=== PATIENT | female | born 1965 | race Caucasian/White ===

== ENCOUNTER 2017-03-18 20:00 | Emergency (ER) | payer SELFPAY ==
[~2017-03-18] VITALS: Ht 170.2 cm; Wt 65.0 kg
[~2017-03-18 20:00] MED LIST: ADVAI100I PO; ALBU6.7H INH; ALBU8I INH; COMBAER INH; PRED20 PO; PULM90IN INH; ZITHTAB PO
[2017-03-18 20:02] VITALS: BP 128/79; PULSE 72; RESP 15; TEMP 98.8; O2SAT 97
--- NOTE | 2017-03-18 21:40 | PD ---
HPI Chief Complaint: Injury Time Seen by Provider: 21:28 Travel History International Travel<30 days: No Contact w/Intl Traveler<30days: No Traveled to known affect area: No History of Present Illness HPI 51-year-old white female presents to the department with complaints of right knee pain over the past few days. She had a slip and fall a few days ago when she fell in the bathroom at [facility]. At that time she had fallen on her buttocks but did not injure her knee.. She states that she normally does a lot of activities but has not noticed any thing out of the usual.The patient states that she has significant worsening pain in her right knee after cleaning her home today. She complains of pain diffusely in the knee. It appears to be worse in the back of her knee. She feels it is swollen and tight. She denies any thigh or calf pain. No numbness or tingling. 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 She is not on a blood thinners. [facility] Past Medical History Narrative Medical Asthma, pneumonia, ovarian cancer, DVT, PE Asthma: Yes Cancer: Yes (UTERINE 20 YRS AGO) Respiratory: Yes (ASTHMA) Tetanus Vaccination: < 5 Years ?: Not Dilation and Curettage (D&C): Yes Past Surgical History Narrative Surgical Salpingo-oophorectomy, chemotherapy and radiation for ovarian cancer Social History Alcohol Use: No Tobacco Use: No Substance Use: No Allergies-Medications (Allergen,Severity, Reaction): Coded Allergies: No Known Allergies (Unverified , 03/18/17) Reported Meds & Prescriptions Reported Meds & Active Scripts Active Ventolin Hfa (Albuterol Sulfate) 8 Gm Aero 2 Puff INH Q4 PRN Advair Diskus 100/50 (Salmeterol Xinafoate/Fluticasone) Fluticasone/Salmeterol 100/50 Inh 1 Puff PO BID Zithromax Z-Brandon (Azithromycin) 1 Tab Tab 250 Mg PO DAILY 5 Days Deltasone 20 Mg Tab (Prednisone) 20 Mg Tab 20 Mg PO Q12HR 5 Days Proventil Hfa (Albuterol Sulfate) 6.7 Gm Aero 2 Puff INH Q4HPRN * SHAKE WELL BEFORE USE * Reported Pulmicort Flexhaler (Budesonide (Inhalation)) 90 Mcg Inh 1 Puff INH Combivent (Albuterol/Ipratropium) 14.7 Gm Aer 2 Puff INH Q6H Review of Systems Except as stated in HPI: all other systems reviewed are Neg General / Constitutional: No: Fever, Chills HENT: No: Lightheadedness, Sore Throat Cardiovascular: No: Chest Pain or Discomfort, Palpitations Respiratory: No: Cough, Shortness of Breath, Wheezing Gastrointestinal: No: Nausea, Vomiting, Abdominal Pain Genitourinary: No: Frequency, Dysuria Musculoskeletal: Positive: Arthralgias, Limited ROM, Cramping, Edema, Pain Skin: Positive Other, No Rash, No Itching Physical Exam Narrative GENERAL: This is a well-nourished, well-developed patient, in no apparent distress. Patient is hard of hearing. SKIN: No rashes, ecchymoses or lesions. Warm and dry. HEAD: Atraumatic. Normocephalic. EYES: PERRL, EOMI, no discharge or injection. No scleral icterus. EARS: Clear NOSE: Nasal turbinates appear normal. THROAT: Mucosa pink and moist. Airway patent. NECK: Trachea midline. supple, moves head freely. LUNGS: Clear to auscultation. CV: Regular in rhythm. ABDOMEN: Soft nontender. EXT: No clubbing cyanosis. Examination of the right lower extremity reveals swelling in the knee. She complains of diffuse pain more so in the popliteal fossa. There is no anterior posterior draw. No medial lateral collateral ligament instability. She does report pain with meniscal testing. No pain in the hip, thigh, calf, ankle or foot. She has intact sensation with good distal pulses. Patient is up and independently ambulatory with only minimally antalgic gait. Data Data Last Documented VS Vital Signs Date Time Temp Pulse Resp B/P (MAP) Pulse Ox O2 Delivery O2 Flow Rate FiO2 03/18/17 20:02 98.8 72 15 128/79 (95) 97 Room Air Orders Orders Knee, Complete (4vws) (03/18/17 21:34) Ice/Cold Pack (03/18/17 21:34) Splint Or Brace Apply/Monitor (03/18/17 21:34) Crutches (03/18/17 21:34) Acetamin-Hydrocod 325-5 Mg ([place] 5-325 (03/18/17 21:45) Ibuprofen (Motrin) (03/18/17 21:45) MDM Medical Decision Making Medical Screen Exam Complete: Yes Emergency Medical Condition: Yes Medical Record Reviewed: Yes Interpretation(s) Right knee: Negative for acute fracture. No joint effusion. No subluxation. Differential Diagnosis MDM: High Differential diagnoses: Fracture, sprain, strain, dislocation, contusion, neurovascular injury Narrative Course Patient's given ice pack, x-ray of the right knee, Lortab 5 and Motrin 800 mg by mouth. X-ray of the right knee is negative for any bony injury. Patient's given [place] wrap and crutches. This is right knee pain Diagnosis Primary Impression: Acute pain of right knee Patient Instructions: General Instructions Departure Forms: Tests/Procedures, Work Release Special Instructions: No work 3 days. Additional Instructions: Rest. Elevation. Ice packs for the next 3 days. [place] wrap and crutches. No weight-bearing and then progress to weight-bearing as tolerated. Medications as directed Follow-up with an orthopedist or your doctor in one week. Return to the ER if any problems Med/Other Pt SpecificInfo: Prescription(s) given Disposition: 01 DISCHARGE HOME Condition: Stable Jv Antonio Mar 18, 2017 21:40
[2017-03-18] MEDS ORDERED: ACETAMINOPHEN/HYDROcodone 325 MG/5 MG TAB PO ONE (21:45)
[2017-03-18] MEDS ORDERED: IBUPROFEN 800 MG TAB PO ONE (21:45)
[2017-03-18] MEDS ORDERED: DICL75TA PO (22:00)
--- NOTE | 2017-03-18 22:05 | RADRPT ---
EXAM DATE/TIME: 03/18/2017 21:45 [facility] COMPARISON: No previous studies available for comparison. INDICATIONS : Right knee pain. MEDICAL HISTORY : None. SURGICAL HISTORY : None. ENCOUNTER: Initial ACUITY: 1 day PAIN SCORE: 8/10 LOCATION: Right knee. FINDINGS: Four view examination of the right knee demonstrates no evidence of fracture or dislocation. Bony mi neralization is normal. The suprapatellar soft tissues have a normal configuration. CONCLUSION: 1. No acute findings. Early changes of osteoarthritis with early osteophyte formation. Jv Onitveros MD on March 18, 2017 at 22:03 Board Certified Radiologist. This report was verified electronically.
== END 2017-03-18 22:24 | disposition home or self-care (01) ==
LOC: NEPD 20:00
DX: M25.561 Pain in right knee (principal); W18.30XA Fall on same level, unspecified, initial encounter; Y92.512 Supermarket, store or market as the place of occurrence of the external cause; J45.909 Unspecified asthma, uncomplicated
CPT/HCPCS: 73564; 99283; E0113

== ENCOUNTER 2017-08-17 11:19 | Emergency (ER) | payer SELFPAY ==
[~2017-08-17 11:19] MED LIST changes: +DICL75TA PO
[2017-08-17 11:52] VITALS: BP 128/90; PULSE 73; RESP 18; TEMP 98.5; O2SAT 99
[2017-08-17] MEDS ORDERED: OFLOXACIN 0.3% OPTH SOLN 5 ML BTL RIGHT EYE ONE (13:00)
--- NOTE | 2017-08-17 13:10 | PD ---
HPI Chief Complaint: Eye Problems/Injury Time Seen by Provider: 12:24 Travel History International Travel<30 days: No Contact w/Intl Traveler<30days: No Traveled to known affect area: No History of Present Illness HPI 52-year-old female here with right eye pain after removing her contact lens yesterday. She reports irritation and foreign body sensation to the right eye. Pain is worse with bright light. Slightly relieved when the lid is closed. Reports blurred vision due to the constant tearing. Symptoms severity is moderate. PFSH Past Medical History Asthma: Yes Cancer: Yes (UTERINE 20 YRS AGO) Respiratory: Yes (ASTHMA) ?: Not Dilation and Curettage (D&C): Yes Social History Alcohol Use: No Tobacco Use: No Substance Use: No Allergies-Medications (Allergen,Severity, Reaction): Coded Allergies: No Known Allergies (Unverified Adverse Reaction, Unknown, 08/17/17) Reported Meds & Prescriptions Reported Meds & Active Scripts Active Review of Systems Except as stated in HPI: all other systems reviewed are Neg General / Constitutional: No: Fever Eyes: Positive: Photophobia, Redness, Foreign Body Sensation, Tearing HENT: No: Headaches Cardiovascular: No: Chest Pain or Discomfort Respiratory: No: Shortness of Breath Gastrointestinal: No: Abdominal Pain Genitourinary: No: Dysuria Physical Exam Narrative GENERAL: Alert well-appearing 52-year-old female. Mild distress SKIN: Warm and dry. HEAD: Normocephalic. EYES: Right eye injected. Cornea is clear. Pupils equal, round, reactive to light. EOMs intact. Fluorescein dye uptake located at 7:00 over the iris. Patient is a contact lens wearer and does not have a pair of Glasses Visual acuity: R: 20/100 , L:20/100 , B: 20/100 NECK: Supple Data Data Last Documented VS Vital Signs Date Time Temp Pulse Resp B/P (MAP) Pulse Ox O2 Delivery O2 Flow Rate FiO2 08/17/17 11:52 98.5 73 18 128/90 (103) 99 Orders Orders Ofloxacin 0.3% Opth Soln (Ocuflox 0.3% O (08/17/17 13:00) Mandatory Outpatient Referral (08/17/17 13:10) MDM Medical Decision Making Medical Screen Exam Complete: Yes Emergency Medical Condition: Yes Differential Diagnosis Contact keratitis, corneal ulcer, corneal abrasion Narrative Course 52-year-old female here with corneal abrasion/contact keratitis to the right eye. She is a contact lens user. She is uninsured. She was given a bottle of Floxin ophthalmic drops in the ED with instructions on how to properly use. She was given a mandatory referral for follow-up with front line supervisor photographic spotter Dr. Lee. Strict return precautions were discussed. Patient verbalizes understanding and agrees to plan Diagnosis Primary Impression: Corneal abrasion Qualified Codes: S05.01XA - Injury of conjunctiva and corneal abrasion without foreign body, right eye, initial encounter Referrals: Kelley Lee MDrelocation director Additional Instructions: Use the ofloxacin ophthalmic eyedrops as directed. You were given a mandatory referral for follow-up with the photographic spotter Dr. Lee. Return to emergency department if he developed new or worsening symptoms Scripts Acetaminophen-Codeine (Tylenol-Codeine #3) 300-30 mg Tab 1 TAB PO Q6H Y for PAIN, #12 TAB 0 Refills Prov: uSsu Lee 08/17/17 Disposition: 01 DISCHARGE HOME Condition: Stable Susu Lee Aug 17, 2017 13:10
[2017-08-17] MEDS ORDERED: TYLETAB34 PO (13:14)
== END 2017-08-17 13:25 | disposition home or self-care (01) ==
LOC: NEPK 11:19
DX: S05.01XA Injury of conjunctiva and corneal abrasion without foreign body, right eye, initial encounter (principal); X58.XXXA Exposure to other specified factors, initial encounter
CPT/HCPCS: 99283